=== PATIENT | female | born 1975 | race Caucasian/White ===

== ENCOUNTER 2024-05-18 08:03 | Outpatient (AMB) | payer BC, SELFPAY ==
--- NOTE | 2024-05-18 08:08 | A.OFFVIS_ITS ---
Vital Signs 05/18/24 08:11 Height 5 ft 6 in Weight 167 lb BMI 27.0 BP 108/70 Blood Pressure Location Rt brachial Position Sitting Pulse 83 Pulse Source Pulse Oximeter Pulse Oximetry (%) 97 Oxygen Delivery Method Room Air Intake Visit Reasons: Arthritis Allergies Seasonal Allergies Allergy (Verified 05/18/24 08:13) Unknown HPI HPI Arthritis: Details: left shoulder pain when trying to reach back. Increase stiffness in knees with prolonged sitting. Trying to do exercises again. PFSH Surgical History H/O: hysterectomy Social History Alcohol intake: current Comment: 2 drinks a week Patient Tobacco Use Status: Never used Tobacco Review of Systems Const All systems reviewed & are unremarkable except as noted in HPI and below Physical Exam Vital Signs: Last Vital Signs Pulse 83 05/18/24 08:11 BP 108/70 05/18/24 08:11 Pulse Ox 97 05/18/24 08:11 Oxygen Delivery Method Room Air 05/18/24 08:11 BMI result Body Mass Index 27.0 Const Other: General: Comfortable Skin: No lesions seen MSK: No tenderness of joints. Left shoulder pain when she tries to reach behind right shoulder. Good range of motion of upper extremity and lower extremities. Assessment & Plan Assessment & Plan (1) Osteoarthritis of right knee: Comment: She is experiencing gel phenomenon. Pain is controlled. We discussed conserv ative management. We discussed the importance of having a regular exercise routine. Code(s): M17.11 - Unilateral primary osteoarthritis, right knee Category: Medical Qualifiers: Osteoarthritis type: primary Qualified Code(s): M17.11 - Unilateral primary osteoarthritis, right knee Plan: Exercise 30 minutes a day. Previously completed physical therapy. Encouraged weight loss. 10 lb weight loss goal for next visit. We discussed importance of healthy eating. Return to clinic in 3 months (2) Osteoarthritis of shoulders, bilateral: Comment: Left shoulder pain greater than right shoulder pain with range of motion. We discussed importance of having it at regular exercise routine. Code(s): M19.011 - Primary osteoarthritis, right shoulder; M19.012 - Primary osteoarthritis, left shoulder Category: Medical Qualifiers: Osteoarthritis type: primary Qualified Code(s): M19.011 - Primary osteoarthritis, right shoulder; M19.012 - Primary osteoarthritis, left shoulder Plan: Encouraged 30 minute exercise program daily. Previously completed physical therapy If left shoulder pain does not resolve, we will consider cortisone injection Return to clinic in 3 months (3) Chondromalacia, left knee: Comment: Pain is controlled. Code(s): M94.262 - Chondromalacia, left knee Category: Medical Plan: Discussed importance of having a regular exercise routine. She will start 30 minute exercise program daily. Previously completed physical therapy. Return to clinic in 3 months (4) Prepatellar bursitis, left knee: Comment: Resolved. Code(s): M70.42 - Prepatellar bursitis, left knee Category: Medical Plan: Monitor clinically Coding Level of Care Code Est Pt Level 4 (92086) Complex EM visit Add On G2211 Diagnoses Primary osteoarthritis of right knee M17.11 Osteoarthritis type: primary Primary osteoarthritis of both shoulders M19.011; M19.012 Osteoarthritis type: primary Chondromalacia, left knee M94.262 Prepatellar bursitis, left knee M70.42
[2024-05-18 08:11] VITALS: BP 108/70; PULSE 83; O2SAT 97; BMI 27.0
== END 2024-05-18 08:30 | disposition home or self-care (01) ==
PROVIDERS: Visit Provider Internal Medicine Rheumatology
DX: M17.11 Unilateral primary osteoarthritis, right knee (principal); M19.011 Primary osteoarthritis, right shoulder; M19.012 Primary osteoarthritis, left shoulder; M94.262 Chondromalacia, left knee; M70.42 Prepatellar bursitis, left knee
CPT/HCPCS: 99214

== ENCOUNTER → 2024-05-18 08:03 | Outpatient (BNVA) | payer BC, SELFPAY | PROVIDERS: Visit Provider Internal Medicine Rheumatology ==

== ENCOUNTER 2024-08-17 08:01 | Outpatient (AMB) | payer BC, SELFPAY ==
--- NOTE | 2024-08-17 08:03 | MHC.OFFVIS ---
Vital Signs 08/17/24 08:07 Height 5 ft 6 in Weight 162 lb 4.163 oz BMI 26.2 BP 126/80 Blood Pressure Location Lt brachial Position Sitting Pulse 74 Pulse Source Pulse Oximeter Pulse Oximetry (%) 97 Oxygen Delivery Method Room Air Intake Visit Reasons: 3 mnts f/u appt Intake Note: Patient presents today with Arthritis. Allergies Seasonal Allergies Allergy (Verified 08/17/24 08:08) Unknown HPI HPI 3 mnts f/u appt: Details: Takes ibuprofen 400mg PRN and icing knee. Feels left knee is warm like at hot flash. Denies swelling. She is able to sit for 2 hours and get up and move. Lost 5lbs. Motivated to loose more weight. Left shoulder pain with certain movements like eileen and reaching for back. PFSH Surgical History H/O: hysterectomy Social History Alcohol intake: current Comment: 2 drinks a week Patient Tobacco Use Status: Never used Tobacco Physical Exam Vital Signs: Last Vital Signs Pulse 74 08/17/24 08:07 BP 126/80 08/17/24 08:07 Pulse Ox 97 08/17/24 08:07 Oxygen Delivery Method Room Air 08/17/24 08:07 BMI result Body Mass Index 26.2 Const Other: General: Comfortable Skin: No lesions seen MSK: No tenderness of joints. Left shoulder pain when she tries to reach behind right shoulder and with internal rotation. Normal range of motion of upper extremity and lower extremities. Increase laxity of left patella compared compared to right knee. Assessment & Plan Assessment & Plan (1) Osteoarthritis of shoulders, bilateral: Comment: Left shoulder pain hindering extracurricular activities. She has preserved function. Code(s): M19.011 - Primary osteoarthritis, right shoulder; M19.012 - Primary osteoarthritis, left shoulder Category: Medical Qualifiers: Osteoarthritis type: primary Qualified Code(s): M19.011 - Primary osteoarthritis, right shoulder; M19.012 - Primary osteoarthritis, left shoulder Plan: Start meloxicam 15 mg daily for 1 month Continue exercises learned from physical therapy 30-45 minutes daily Return to clinic in 3 months (2) Chondromalacia, left knee: Comment: Pain is controlled. Code(s): M94.262 - Chondromalacia, left knee Category: Medical Plan: Continue knee strengthening exercises learned from physical therapy in the past Return to clinic in 3 months (3) Osteoarthritis of right knee: Comment: Pain has resolved with restarting exercises learned from physical therapy. Code(s): M17.11 - Unilateral primary osteoarthritis, right knee Category: Medical Qualifiers: Osteoarthritis type: primary Qualified Code(s): M17.11 - Unilateral primary osteoarthritis, right knee Plan: Continue home exercise program Encouraged continued weight loss with healthy eating exercise Return to clinic in 3 months (4) intermediate (current) use of non-steroidal anti-inflammatories (nsaid): Code(s): Z79.1 - termite control servicer (current) use of non-steroidal anti-inflammatories (NSAID) Category: Medical Plan: Labs ordered prior to starting meloxicam. She will be starting meloxicam 15 mg once daily for a month Orders: Orders Alanine Aminotransferase Today Z79.1 - intermediate (current) use of non-steroidal anti-inflammatories (NSAID) Aspartate Amino Transferase Today Z79.1 - termite control servicer (current) use of non-steroidal anti-inflammatories (NSAID) Creatinine Today Z79.1 - termite control servicer (current) use of non-steroidal anti-inflammatories (NSAID) Complete Blood Count Auto Diff Today Z79.1 - termite control servicer (current) use of non-steroidal anti-inflammatories (NSAID) Medications: New meloxicam 15 mg PO DAILY 30 tabs 1RF Coding Level of Care Code Est Pt Level 3 (82028) Complex EM visit Add On G2211 Diagnoses Primary osteoarthritis of both shoulders M19.011; M19.012 Osteoarthritis type: primary Chondromalacia, left knee M94.262 Primary osteoarthritis of right knee M17.11 Osteoarthritis type: primary termite control servicer (current) use of non-steroidal anti-inflammatories (nsaid) Z79.1
[2024-08-17 08:07] VITALS: BP 126/80; PULSE 74; O2SAT 97; BMI 26.2
--- OUTSIDE RECORDS SUMMARY | 2024-08-17 08:08 | XMS_ITS | Encounter Summary ---
Author Organization [facility] Address [address] [place] [address] Care Team Providers Care [employer] Vice Principal Name Role Phone Uriel Camarena MD Primary Care Provider [phone] Encounter Details Date Type Department Care Team (Latest Contact Info) Description 07/16/2024 Lab Requisition [facility] - Main Lab [address] [facility] [email or web address] [address] Jessie Salinas MD 299 [facility] [address] [place] [address] Encounter for gynecological examination (general) (routine) without abnormal findings Social History Tobacco Use Types Packs/Day Years Used Date Smoking Tobacco: Never Assessed Comments Unknown Sex and Gender Information Value Date Recorded Sex Assigned at Not on file Legal Sex Female 7:42 AM EST Gender Identity Not on file Sexual Orientation Not on file documented as of this encounter Plan of Treatment Not on file documented as of this encounter Procedures Procedure Name Priority Date/Time Associated Diagnosis Comments PAP SMEAR Routine 07/15/2024 12:00 AM EST Encounter for gynecological examination (general) (routine) without abnormal findings documented in this encounter Results * Pap smear (07/15/2024 12:00 AM EST) Interpretation Negative for intraepithelial lesion or malignancy 07/20/2024 7:55 AM [facility] General Categorization Negative 07/20/2024 7:55 AM [facility] Specimen Adequacy Satisfactory for evaluation 07/20/2024 7:55 AM EDT [facility] Pap Methodology Liquid Based Pap Test 07/20/2024 7:55 AM EDT [facility] Disclaimer The Pap test is a screening test which carries an inherent false negative rate. These test results should be correlated with the patient's clinical findings and history. This Pap test was processed using an automated screening system. Technical cytopathology services provided by [facility], at [address] [place] [address] (CLIA # [id number]/Yahir Britt MD, Fast Food Server.) 07/20/2024 7:55 AM EDT [facility] Console Pap Interpretation Reported 07/20/2024 7:55 AM [facility] Brushing/Spatula Vaginal structure / Unknown 07/15/2024 07/16/2024 7:02 AM EST us Jessie Salinas MD LAB CYTOLOGY ORDERABLES Final Result [facility] [address] [place] [address], documented in this encounter Visit Diagnoses Diagnosis Encounter for gynecological examination (general) (routine) without abnormal findings documented in this encounter Care Teams High School Vice Principal Relationship Specialty Start Date End Date Uriel Camarena MD [address] [place] [address] PCP - General Internal Medicine 07/16/24 documented as of this encounter
--- OUTSIDE RECORDS SUMMARY | 2024-08-17 08:08 | XMS_ITS | Clinical Summary ---
Author Organization 299 [facility] Address [address] [place] [address] Phone Care Team Providers Care Tester Regulator Name Role Phone Uriel Camarena MD Primary Care Provider [phone] Encounters Date Type Department Care Team Description 07/16/2024 Lab Requisition [facility] - Main Lab [address] [place] [address] Jessie Salinas MD Encounter for gynecological examination (general) (routine) without abnormal findings from Last 3 Months Social History Tobacco Use Types Packs/Day Years Used Date Smoking Tobacco: Never Assessed Comments Unknown Sex and Gender Information Value Date Recorded Sex Assigned at Not on file Legal Sex Female 7:42 AM EST Gender Identity Not on file Sexual Orientation Not on file Plan of Treatment Health Maintenance Due Date Last Done Comments Breast Cancer Screening 1973 DTaP,Tdap,and Td Vaccines (1 - Tdap) 1992 Hepatitis B Vaccines (1 of 3 - 19+ 3-dose series) 1992 Colorectal Cancer Screening: Colonoscopy 04/14/2022 Depression Screening 04/14/2022 HIV Screening 04/14/2022 Hepatitis C Screening 04/14/2022 Social Influencers of Health Screening 04/14/2022 Pneumococcal Vaccine: 50+ Ye ars (1 of 1 - PCV) 2023 Zoster Vaccines (1 of 2) 2023 COVID-19 Vaccine ( - 2023-2 5 season) 2024 Influenza Vaccine (#1) 2024 Cervical Cancer Screening: P ap Smear 07/16/2027 07/15/2024 HIB Vaccines Aged Out No longer eligi ble based on patient's age to complete this topic HPV Vaccines Aged Out No longer eligi ble based on patient's age to complete this topic Hepatitis A Vaccines Aged Out No long er eligible based on patient's age to complete this topic IPV Vaccines Aged Out No longer eligi ble based on patient's age to complete this topic MMR Vaccines Aged Out No longer eligi ble based on patient's age to complete this topic Meningococcal ACWY Vaccine Aged Out N o longer eligible based on patient's age to complete this topic Meningococcal B Vaccine Aged Out No l onger eligible based on patient's age to complete this topic Pneumococcal Vaccine: Pediat rics (0 to 5 Years) and At-Risk Patients (6 to 64 Years) Aged Out No longer eligi ble based on patient's age to complete this topic RSV Immunization Patients Un tereza 20 months Aged Out No longer eligible b ased on patient's age to complete this topic Varicella Vaccines Aged Out No longer eligible based on patient's age to complete this topic Procedures Procedure Name Priority Date/Time Associated Diagnosis Comments PAP SMEAR Routine 07/15/2024 12:00 AM EST Encounter for gynecological examination (general) (routine) without abnormal findings from Last 3 Months Results * Pap smear (07/15/2024 12:00 AM EST) Interpretation Negative for intraepithelial lesion or malignancy 07/20/2024 7:55 AM [facility] General Categorization Negative 07/20/2024 7:55 AM [facility] Specimen Adequacy Satisfactory for evaluation 07/20/2024 7:55 AM [facility] Pap Methodology Liquid Based Pap Test 07/20/2024 7:55 AM [facility] Disclaimer The Pap test is a screening test which carries an inherent false negative rate. These test results should be correlated with the patient's clinical findings and history. This Pap test was processed using an automated screening system. Technical cytopathology services provided by [facility], at [address] [place] [address], [place] [address] (CLIA # [id number]/Yahir Britt MD, Telecommunications Operator.) 07/20/2024 7:55 AM EDT [facility] Console Pap Interpretation Reported 07/20/2024 7:55 AM EDT [facility] Brushing/Spatula Vaginal structure / Unknown 07/15/2024 07/16/2024 7:02 AM EST us Jessie Salnias MD LAB CYTOLOGY ORDERABLES Final Result [facility] ([facility]) [facility] [address] [place] [address], from Last 3 Months Insurance [facility]) Care Teams Tester Regulator Relationship Specialty Start Date End Date Uriel Camarena MD [address] [place] [address] PCP - General Internal Medicine 07/16/24
== END 2024-08-17 08:31 | disposition home or self-care (01) ==
LOC: HO.RHES 08:01
PROVIDERS: PCP Internal Medicine; Visit Provider Internal Medicine Rheumatology
DX: M19.011 Primary osteoarthritis, right shoulder (principal); M19.012 Primary osteoarthritis, left shoulder; M94.262 Chondromalacia, left knee; M17.11 Unilateral primary osteoarthritis, right knee; Z79.1 Long term (current) use of non-steroidal anti-inflammatories (NSAID)
CPT/HCPCS: 99213

== ENCOUNTER 2024-08-17 08:01 | Outpatient (REF) | payer BC, SELFPAY ==
--- OUTSIDE RECORDS SUMMARY | 2024-08-17 09:02 | XMS_ITS | Encounter Summary ---
Author Organization [facility] Address [address] [place] [address] Care Team Providers Care Supervisor Facepiece Line Name Role Phone Uriel Camarena MD Primary Care Provider [phone] Encounter Details Date Type Department Care Team (Latest Contact Info) Description 07/16/2024 Lab Requisition [facility] - Main Lab [address] [facility] [place] [address] Jessie Salinas MD 299 [facility] [address] [place] [address] Encounter for gynecological examination (general) [...] intraepithelial lesion or malignancy 07/20/2024 7:55 AM [facility] General Categorization Negative 07/20/2024 7:55 AM [facility] Specimen Adequacy Satisfactory for evaluation 07/20/2024 7:55 AM EDT [facility] Pap Methodology Liquid Based Pap Test 07/20/2024 7:55 AM EDT [facility] Disclaimer The Pap test is a screening test which carries an inherent false negative rate. These test results should be correlated with the patient's clinical findings and history. This Pap test was processed using an automated screening system. Technical cytopathology services provided by [facility], at [address] [place] [address] (CLIA # [id number]/Yahir Britt MD, Application Architect Manager.) 07/20/2024 7:55 AM EDT [facility] Console Pap Interpretation Reported 07/20/2024 7:55 AM [facility] Brushing/Spatula Vaginal structure / Unknown 07/15/2024 07/16/2024 7:02 AM EST us Jessie Salinas MD LAB CYTOLOGY ORDERABLES Final Result [facility] [address] [place] [address], documented in this encounter Visit Diagnoses Diagnosis Encounter for gynecological examination (general) (routine) without abnormal findings documented in this encounter Care Teams Supervisor Facepiece Line Relationship Specialty Start Date End Date Uriel Camarena MD [address] [place] [address] PCP - General Internal Medicine 07/16/24 documented as of this encounter
--- OUTSIDE RECORDS SUMMARY | 2024-08-17 09:03 | XMS_ITS | Clinical Summary ---
Author Organization 299 [facility] Address [address] [place] [address] Phone Care Team Providers Care Assisted Living Administrator Name Role Phone Uriel Camarena MD Primary Care Provider [phone] Encounters Date Type Department Care Team Description 07/16/2024 Lab Requisition [facility] - Main Lab [address] [place] [address] Jessie Salinas MD Encounter for [...] - 2023-2 5 season) 2024 Influenza Vaccine (Season Ended) 2025 Cervical Cancer Screening: P ap Smear 07/16/2027 [...] intraepithelial lesion or malignancy 07/20/2024 7:55 AM [facility] General Categorization Negative 07/20/2024 7:55 AM [facility] Specimen Adequacy Satisfactory for evaluation 07/20/2024 7:55 AM [facility] Pap Methodology Liquid Based Pap Test 07/20/2024 7:55 AM [facility] Disclaimer The Pap test is a screening test which carries an inherent false negative rate. These test results should be correlated with the patient's clinical findings and history. This Pap test was processed using an automated screening system. Technical cytopathology services provided by [facility], at [address] [place] [address], [place] [address] (CLIA # [id number]/Yahir Britt MD, Sharemilker.) 07/20/2024 7:55 AM EDT [facility] Console Pap Interpretation Reported 07/20/2024 7:55 AM EDT [facility] Brushing/Spatula Vaginal structure / Unknown 07/15/2024 07/16/2024 7:02 AM EST us Jessie Salinas MD LAB CYTOLOGY ORDERABLES Final Result [facility] ([facility]) [facility] [address] [place] [address], from Last 3 Months Insurance [facility]) Care Teams Assisted Living Administrator Relationship Specialty Start Date End Date Uriel Camarena MD [address] [place] [address] PCP - General Internal Medicine 07/16/24
[2024-08-17 18:41] LABS: MANUAL DIFF FLAG NO
[2024-08-17 18:55] LABS: Basophils Percent Auto 0.6 % (0-2); Eosinophils Absolute Auto 0.1 X10*3/uL (0.0-0.4); Eosinophils Percent Auto 1.7 % (0-4); Hemoglobin 13.2 g/dl (12.0-16.0); Imm Gran Abs Auto 0.01 X10*3/uL (0.00-0.03); Imm Gran Pct Auto 0.2 % (0.0-0.4); Lymphocytes Absolute Auto 1.6 X10*3/uL (1.2-4.9); Lymphocytes Percent Auto 23.5 % (20-40); Mean Corpuscular HGB Conc 33.8 g/dl (31.0-35.0); Mean Corpuscular Hemoglobin 30.1 pg (27.0-33.0); Mean Platelet Volume 10.5 fL (9.4-12.3); Monocytes Absolute Auto 0.6 X10*3/uL (0.1-1.2); Monocytes Percent Auto 8.9 % (2-11); Neutrophils Absolute Auto 4.3 x10*3/uL (2.0-8.3); Neutrophils Percent Auto 65.1 % (45-73); Platelet Count 271 X10*3/uL (160-400); Red Blood Count 4.38 X10*6/uL (4.20-5.50); Red Cell Distribution Width 12.4 % (11.0-16.0); White Blood Count 6.6 X10*3/uL (4.8-10.8)
[2024-08-17 19:05] LABS: Alanine Aminotransferase 27 U/L (0-31); Aspartate Amino Transferase 26 U/L (5-31); Estimated Glomerular Filt Rate > 60
== END 2024-08-17 08:02 | disposition home or self-care (01) ==
LOC: HO.HKASLDS 08:01
PROVIDERS: PCP Internal Medicine; Visit Provider Internal Medicine Rheumatology
DX: M17.11 Unilateral primary osteoarthritis, right knee (principal); Z79.1 Long term (current) use of non-steroidal anti-inflammatories (NSAID)
CPT/HCPCS: 36415; 82565; 84450; 84460; 85025

== ENCOUNTER 2024-11-17 07:52 | Outpatient (AMB) | payer BC, SELFPAY ==
--- NOTE | 2024-11-17 07:54 | MHC.OFFVIS ---
Vital Signs 11/17/24 07:57 Height 5 ft 6 in Weight 156 lb 15.506 oz BMI 25.3 BP 120/64 Blood Pressure Location Rt brachial Position Sitting Pulse 80 Pulse Source Pulse Oximeter Pulse Oximetry (%) 98 Oxygen Delivery Method Room Air Intake Visit Reasons: 3 Months Intake Note: Patient presents today with Arthritis Allergies Seasonal Allergies Allergy (Verified 11/17/24 07:58) Unknown HPI HPI 3 Months: Details: left shoulder pain after few days of eileen. Feels ache without movement. She tried meloxicam for 1 month and did not have pain. 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 She crochets for at least an hour a day after work. Knees feel great. She has lost weight. She continues to do PT exercises at home. PFSH Surgical History H/O: hysterectomy Social History Alcohol intake: current Comment: 2 drinks a week Patient Tobacco Use Status: Never used Tobacco Physical Exam Vital Signs: Last Vital Signs Pulse 80 11/17/24 07:57 BP 120/64 11/17/24 07:57 Pulse Ox 98 11/17/24 07:57 Oxygen Delivery Method Room Air 11/17/24 07:57 BMI result Body Mass Index 25.3 Const Other: General: Comfortable Skin: No lesions seen MSK: No tenderness of joints. Left shoulder pain when she tries to reach behind right shoulder and with internal rotation. Normal range of motion of upper extremity and lower extremities. Increase laxity of left patella compared compared to right knee. Office Procedures AMB Joint Injection/Aspiration Joint Injection/Aspiration Details: Left subacromial space Prep: site was prepped using aseptic technique Injected: 40 mg of, Kenalog, with 1 mL of and 1% plain lidocaine Procedure: Informed verbal consent was obtained. The patient tolerated the procedure well. Postprocedure protocol was discussed with patient. Coding 26100 - Large joint Procedure code (CPT) selection complete Office Meds lidocaine (PF) 10 mg/mL (1 %) injection solution Performing Provider: Armando Noriega MD Performing Location[place] [facility] Administered by: Armando Noriega MD on 11/17/24 08:23 Dose Route Admin Location Dispensed Lot Number Expiration Date [facility] Choreography Director 10 mg Infiltration 2 mL [id number] [employer] Total Dispensed Waste 2 mL 50 % Kenalog 40 mg/mL suspension for injection Performing Provider: Armando Noriega MD Performing Location: [facility] Administered by: Armando Noriega MD on 11/17/24 08:23 Dose Route Admin Location Dispensed Lot Number Expiration Date [facility] Choreography Director 40 mg intrabursal 1 mL [place] [id number] [employer] [place] Total Dispensed Waste 1 mL 0 % Assessment & Plan Assessment & Plan (1) Subacromial impingement of left shoulder: Comment: Contributing to pain exacerbated with crocheting. Failed PT exercises and 1 month of meloxicam. Code(s): M75.42 - Impingement syndrome of left shoulder Category: Medical Plan: Patient received cortisone injection to left subacromial space If pain returns she will try meloxicam 15 mg daily PRN pain. Labs from August 2024 okay Return to clinic in 3 months (2) Osteoarthritis of shoulders, bilateral: Comment: Uncontrolled left shoulder pain. Code(s): M19.011 - Primary osteoarthritis, right shoulder; M19.012 - Primary osteoarthritis, left shoulder Category: Medical Qualifiers: Osteoarthritis type: primary Qualified Code(s): M19.011 - Primary osteoarthritis, right shoulder; M19.012 - Primary osteoarthritis, left shoulder Plan: See above (3) Chondromalacia, left knee: Comment: Pain is controlled PT exercises. Code(s): M94.262 - Chondromalacia, left knee Category: Medical Plan: Continue knee strengthening exercises learned from physical therapy in the past Continue to lose weight Return to clinic in 3 months (4) Osteoarthritis of right knee: Comment: Pain is controlled with PT exercises Code(s): M17.11 - Unilateral primary osteoarthritis, right knee Category: Medical Qualifiers: Osteoarthritis type: primary Qualified Code(s): M17.11 - Unilateral primary osteoarthritis, right knee Plan: Continue home exercise program Continue to lose weight Return to clinic in 3 months Orders: Orders AMB Joint Injection/Aspiration Today M75.42 - Impingement syndrome of left shoulder Coding Level of Care Code Est Pt Level 3 (26071) Complex EM visit Add On G2211 Diagnoses Subacromial impingement of left shoulder M75.42 Primary osteoarthritis of both shoulders M19.011; M19.012 Osteoarthritis type: primary Chondromalacia, left knee M94.262 Primary osteoarthritis of right knee M17.11 Osteoarthritis type: primary CPT Codes Coding - 47761 Large joint: 61979 - Large joint ([id number])
--- OUTSIDE RECORDS SUMMARY | 2024-11-17 07:55 | XMS_ITS | Encounter Summary ---
Author Organization [facility] Address [address] [place] [address] Care Team Providers Care Tutor Name Role Phone Uriel Camarena MD Primary Care Provider [phone] Encounter Details Date Type Department Care Team (Latest Contact Info) Description 07/16/2024 Lab Requisition [facility] - Main Lab [address] [facility] [place] [address] Jessie Salinas MD 299 [facility] [address] [place] [address] Encounter for gynecological examination (general) [...] intraepithelial lesion or malignancy 07/20/2024 7:55 AM [facility] General Categorization Negative 07/20/2024 7:55 AM [facility] Specimen Adequacy Satisfactory for evaluation 07/20/2024 7:55 AM EDT [facility] Pap Methodology Liquid Based Pap Test 07/20/2024 7:55 AM EDT [facility] Disclaimer The Pap test is a screening test which carries an inherent false negative rate. These test results should be correlated with the patient's clinical findings and history. This Pap test was processed using an automated screening system. Technical cytopathology services provided by [facility], at [address] [place] [address] (CLIA # [id number]/Yahir Britt MD, Film Developing Machine Operator.) 07/20/2024 7:55 AM EDT [facility] Console Pap Interpretation Reported 07/20/2024 7:55 AM [facility] Brushing/Spatula Vaginal structure / Unknown 07/15/2024 07/16/2024 7:02 AM EST us Jessie Salinas MD LAB CYTOLOGY ORDERABLES Final Result [facility]) [facility] [address] [place] [address], documented in this encounter Visit Diagnoses Diagnosis Encounter for gynecological examination (general) (routine) without abnormal findings documented in this encounter Care Teams Tutor Relationship Specialty Start Date End Date Uriel Camarena MD [address] [place] [address] PCP - General Internal Medicine 07/16/24 documented as of this encounter
[2024-11-17 07:57] VITALS: BP 120/64; PULSE 80; O2SAT 98; BMI 25.3
== END 2024-11-17 08:20 | disposition home or self-care (01) ==
LOC: HO.RHES 07:53
PROVIDERS: PCP Internal Medicine; Visit Provider Internal Medicine Rheumatology
DX: M75.42 Impingement syndrome of left shoulder (principal); M19.011 Primary osteoarthritis, right shoulder; M19.012 Primary osteoarthritis, left shoulder; M94.262 Chondromalacia, left knee; M17.11 Unilateral primary osteoarthritis, right knee
CPT/HCPCS: 20610; 99213

== ENCOUNTER → 2024-11-17 07:52 | Outpatient (BNVA) | payer BC, SELFPAY | PROVIDERS: PCP Internal Medicine; Visit Provider Internal Medicine Rheumatology | DX: M75.42 Impingement syndrome of left shoulder (principal) | CPT/HCPCS: 20610; J2003; J3300 ==

== ENCOUNTER 2025-03-02 08:08 | Outpatient (AMB) | payer BC, SELFPAY ==
[2025-03-02 08:09] VITALS: BP 120/80; PULSE 77; O2SAT 97; BMI 24.9
--- NOTE | 2025-03-02 08:09 | MHC.OFFVIS ---
Vital Signs 03/02/25 08:09 Height 5 ft 6 in Weight 154 lb 1.65 oz BMI 24.9 BP 120/80 Blood Pressure Location Rt brachial Position Sitting Pulse 77 Pulse Source Pulse Oximeter Pulse Oximetry (%) 97 Oxygen Delivery Method Room Air Intake Visit Reasons: 3 Months Intake Note: Patient presents today with Arthritis Accompanied by: Self / Same As Patient Allergies Seasonal Allergies Allergy (Verified 03/02/25 08:09) Unknown HPI HPI 3 Months: Details: Cortisone injection worse off 2 months ago. She has noticed reduced left shoulder pain when her left shoulder is a mobile when crocheting. She crochets 2 hours a day. She has been experiencing chronic leg Cam for years. She had a workup ordered by PCP which revealed normal inflammatory markers, anti CCP antibody but with ABRAHAM 1:320. + she is photosensitive with the change of season. hx of life long oral ulcers/lip ulcers, which have reduced over the years in frequency. Denies hair loss, migraines, rash, joint swelling, urinary symptoms, family history of rheumatological disease. She has a relative that was being worked up for lupus but without a confirmed diagnosis. She started taking meloxicam over the weekend. [facility] Surgical History H/O: hysterectomy Social History Alcohol intake: current Comment: 2 drinks a week Patient Tobacco Use Status: Never used Tobacco Physical Exam Vital Signs: Last Vital Signs Pulse 77 03/02/25 08:09 BP 120/80 03/02/25 08:09 Pulse Ox 97 03/02/25 08:09 Oxygen Delivery Method Room Air 03/02/25 08:09 BMI result Body Mass Index 24.9 Const Other: General: Comfortable Skin: No lesions seen MSK: No tenderness of joints. Normal range of motion of upper extremity and lower extremities. Assessment & Plan Assessment & Plan (1) Subacromial impingement of left shoulder: Comment: Contributing to pain exacerbated with crocheting. Failed PT exercises and 1 month of meloxicam in the past. Cortisone injection only lasted 2 months. We discussed activity modification to prevent repetitive motion including reducing time crocheting and rehabilitation. Code(s): M75.42 - Impingement syndrome of left shoulder Category: Medical Plan: She will reduce crochets time from 2 hours to 1 hour. She will try alternative activity such as needle point She will take meloxicam 15 mg daily I recommend that she purchase ice wrap for shoulder to use daily when crocheting Continue exercise program learned from PT Can consider alternative NSAID if pain does not resolve next visit Return to clinic in 3-4 months (2) Osteoarthritis of shoulders, bilateral: Comment: Uncontrolled left shoulder pain. Code(s): M19.011 - Primary osteoarthritis, right shoulder; M19.012 - Primary osteoarthritis, left shoulder Category: Medical Qualifiers: Osteoarthritis type: primary Qualified Code(s): M19.011 - Primary osteoarthritis, right shoulder; M19.012 - Primary osteoarthritis, left shoulder Plan: See above (3) Leg cramps: Comment: Chronic Code(s): R25.2 - Cramp and spasm Category: Medical Plan: Electrolytes ordered (4) Positive ABRAHAM (antinuclear antibody): Comment: 1:320 ordered in setting of leg cramps. She has history of photosensitivity with seasonal change and oral ulcers/lip ulcers since childhood. Code(s): R76.8 - Other specified abnormal immunological findings in serum Category: Medical Plan: Laboratory workup ordered for completion of SLE workup I recommended that she contact PCP or urgent care when she has a another oral ulcers/lip ulcer for culture/HSV swab Return to clinic in 3-4 months Orders: Orders Complete Blood Count Auto Diff Today R76.0 - Raised antibody titer UA ClnCatch+Micro w/rflx Cult Today R76.0 - Raised antibody titer Creatinine Today R76.0 - Raised antibody titer Anti DNA DS Antibody Today R76.0 - Raised antibody titer Complement C3 Today R76.0 - Raised antibody titer Sm Sm/GLUE SPECIALTY SUPERVISOR Antibodies Today R76.0 - Raised antibody titer Phosphorus Today R25.2 - Cramp and spasm Magnesium Today R25.2 - Cramp and spasm Potassium Today R25.2 - Cramp and spasm Protein Creatinine Ratio, Ur Today R76.0 - Raised antibody titer Aspartate Amino Transferase Today R76.0 - Raised antibody titer C Reactive Protein Today R76.0 - Raised antibody titer Complement C4 Today R76.0 - Raised antibody titer Calcium Today R25.2 - Cramp and spasm Sodium Today R25.2 - Cramp and spasm Coding Level of Care Code Est Pt Level 4 (70176) Complex EM visit Add On G2211 Diagnoses Subacromial impingement of left shoulder M75.42 Primary osteoarthritis of both shoulders M19.011; M19.012 Osteoarthritis type: primary Leg cramps R25.2 Positive ABRAHAM (antinuclear antibody) R76.8
--- OUTSIDE RECORDS SUMMARY | 2025-03-02 08:12 | XMS_ITS | Clinical Summary ---
Author Organization [address] [facility] Address [address] [place] [phone] Phone Care Team Providers Care Executive Administrator Name Role Phone Uriel Camarena MD Primary Care Provider [phone] Social History Tobacco Use Types Packs/Day Years [...] of 3 - 19+ 3-dose series) 1992 HIV Screening 04/14/2022 Hepatitis C Screening 04/14/2022 Social Influencers of Health Screening 04/14/2022 Pneumococcal Vaccine: 50+ Ye ars (1 of 1 - PCV) 2023 Zoster Vaccines (1 of 2) 2023 Depression Screening 05/12/2024 COVID-19 Vaccine ( - 2023-2 5 season) 2025 Influenza Vaccine (#1) 2025 Cervical Cancer Screening: P ap Smear 07/16/2027 07/15/2024 Colorectal Cancer Screening: Colonoscopy 10/19/2033 10/20/2023 RSV Immunization Adult Patie nts (1 - 1-dose 75+ series) 2048 HIB Vaccines Aged Out No longer eligi [...] gynecological examination (general) (routine) without abnormal findings EXTERNAL COLONOSCOPY REPORT Routine 10/20/2023 10:59 AM EDT from Last 3 Months or Most Recently Relevant to Health Maintenance Results * Pap smear (07/15/2024 12:00 AM EST) Interpretation Negative for intraepithelial lesion or malignancy 07/20/2024 7:55 AM [facility] General Categorization Negative 07/20/2024 7:55 AM [facility] Specimen Adequacy Satisfactory for evaluation 07/20/2024 7:55 AM [facility] Pap Methodology Liquid Based Pap Test 07/20/2024 7:55 AM [facility] Disclaimer The Pap test is a screening test which carries an inherent false negative rate. These test results should be correlated with the patient's clinical findings and history. This Pap test was processed using an automated screening system. Technical cytopathology services provided by [facility], at [address] [place] [address], [place] [address] (CLIA # [id number]/Yahir Britt MD, Electrical Checkout Mechanic.) 07/20/2024 7:55 AM [facility] Console Pap Interpretation Reported 07/20/2024 7:55 AM [facility] Brushing/Spatula Vaginal structure / Unknown 07/15/2024 07/16/2024 7:02 AM EST Jessie Salinas MD LAB CYTOLOGY ORDERABLES Final Result [facility] [address] [place] [address], * External Colonoscopy Report (10/20/2023 10:59 AM EDT) Anatomical Region Laterality Modality Endoscopy Historical Provider GI~PROCEDURE ORDERABLES F inal Result from Last 3 Months or Most Recently Relevant to Health Maintenance Insurance [facility]) Care Teams Executive Administrator Relationship Specialty Start Date End Date Uriel Camarena MD [address] [place] [address] PCP - General Internal Medicine 07/16/24
--- OUTSIDE RECORDS SUMMARY | 2025-03-02 08:12 | XMS_ITS | Encounter Summary ---
Author Organization [facility] Address [address] [place] [address] Care Team Providers Care Securities Underwriter Name Role Phone Uriel Camarena MD Primary Care Provider [phone] Encounter Details Date Type Department Care Team (Latest Contact Info) Description 07/16/2024 Lab Requisition [facility] - Main Lab [address] [facility] [place] [address] Jessie Salinas MD 299 [facility] [address] [place] [address] Encounter for gynecological examination (general) [...] intraepithelial lesion or malignancy 07/20/2024 7:[address] [facility] General Categorization Negative 07/20/2024 7:55 AM [facility] Specimen Adequacy Satisfactory for evaluation 07/20/2024 7:55 AM EDT [facility] Pap Methodology Liquid Based Pap Test 07/20/2024 7:55 AM EDT [facility] Disclaimer The Pap test is a screening test which carries an inherent false negative rate. These test results should be correlated with the patient's clinical findings and history. This Pap test was processed using an automated screening system. Technical cytopathology services provided by [facility], at [address] [place] [address] (CLIA # [id number]/Yahir Britt MD, Machine Bookkeeper.) 07/20/2024 7:55 AM EDT [facility] Console Pap Interpretation Reported 07/20/2024 7:55 AM [facility] Brushing/Spatula Vaginal structure / Unknown 07/15/2024 07/16/2024 7:02 AM EST us Jessie Salinas MD LAB CYTOLOGY ORDERABLES Final Result [facility] [address] [place] [address], documented in this encounter Visit Diagnoses Diagnosis Encounter for gynecological examination (general) (routine) without abnormal findings documented in this encounter Care Teams Securities Underwriter Relationship Specialty Start Date End Date Uriel Camarena MD [address] [place] [address] PCP - General Internal Medicine 07/16/24 documented as of this encounter
== END 2025-03-02 08:38 | disposition home or self-care (01) ==
LOC: HO.RHES 08:08
PROVIDERS: PCP Internal Medicine; Visit Provider Internal Medicine Rheumatology
DX: M75.42 Impingement syndrome of left shoulder (principal); M19.011 Primary osteoarthritis, right shoulder; M19.012 Primary osteoarthritis, left shoulder; R25.2 Cramp and spasm; R76.0 Raised antibody titer
CPT/HCPCS: 99214

== ENCOUNTER 2025-03-02 08:08 | Outpatient (REF) | payer BC, SELFPAY ==
[2025-03-02 13:14] LABS: Appearance Urine Clear; Glucose Urine UA Negative (Negative); PH 7.5 (5.0-9.0); Specific Gravity - Urine 1.015 (1.005-1.025); UMIC TRIGGER UACC YES
[2025-03-02 13:16] LABS: MANUAL DIFF FLAG NO
[2025-03-02 13:23] LABS: UACC Culture Trigger YES
[2025-03-02 13:32] LABS: Hematocrit 39.5 % (37.0-47.0); Hemoglobin 13.3 g/dl (12.0-16.0); Imm Gran Abs Auto 0.01 X10*3/uL (0.00-0.03); Imm Gran Pct Auto 0.2 % (0.0-0.4); Lymphocytes Absolute Auto 1.4 X10*3/uL (1.2-4.9); Mean Corpuscular HGB Conc 33.7 g/dl (31.0-35.0); Mean Corpuscular Hemoglobin 31.1 pg (27.0-33.0); Mean Corpuscular Volume 92.3 fL (80.0-98.0); NRBC Abs Auto 0.000 X10*3/uL (0.0-0.012); NRBC Pct Auto 0.0 /100WBC (0.0-0.2); Platelet Count 222 X10*3/uL (160-400); Red Blood Count 4.28 X10*6/uL (4.20-5.50); White Blood Count 4.9 X10*3/uL (4.8-10.8)
[2025-03-02 13:50] LABS: Aspartate Amino Transferase 26 U/L (5-31); Calcium 9.7 mg/dL (8.4-10.2); Estimated Glomerular Filt Rate > 60; Magnesium 2.2 mg/dL (1.6-2.6); Potassium 4.3 mmol/L (3.3-5.1); Sodium 140 mmol/L (135-145)
[2025-03-02 14:19] LABS: Protein/Creatinine Ratio, Ur 0.09 (<0.2); Total Protein Urine Random 10 mg/dL (<12)
[2025-03-03 15:38] LABS: SM/Ribonucleoprotein Ab <1.0 NEG AI (<1.0 NEG); Smith Protein <1.0 NEG AI (<1.0 NEG)
== END 2025-03-02 08:09 | disposition home or self-care (01) ==
LOC: HO.HKASLDS 08:08
PROVIDERS: PCP Internal Medicine; Visit Provider Internal Medicine Rheumatology
DX: M75.42 Impingement syndrome of left shoulder (principal); M19.011 Primary osteoarthritis, right shoulder; M19.012 Primary osteoarthritis, left shoulder; R76.0 Raised antibody titer; R25.2 Cramp and spasm; Z01.84 Encounter for antibody response examination
CPT/HCPCS: 36415; 81001; 82310; 82565; 82570; 83735; 84100; 84132; 84156; 84295; 84450; 85025; 86140; 86160; 86225; 86235; 87086